=== PATIENT | female | born 1980 ===

== ENCOUNTER → 2018-12-25 | Day surgery (SDC) | payer OTHER ==
[~2018-12-25] MED LIST: Acetaminophen ADULT LIQ* 650 MG/20.3 ML UDC ONE; Acetaminophen IV 1GM/100ML * 0 ML ONE; Acetaminophen TAB* 325 MG PO PRN; BSS OPTH.SOL* BTL ONE; Buffered Lidocaine 1% SYRIN* 1 ML/SYRINGE INTRADERM ONE; Famotidine IV* 10 MG/ML 2 ML (20 mg) IV ONE; Famotidine IV* 10 MG/ML 2 ML (20 mg) ONE; Ibuprofen TAB* 600 MG ONE; Lactated Ringers 1000 ML Bag* 1,000 ML IV SCH; Lidocaine 1% w EPI 1:100,000* MDV 20 ML VIAL ONE; Lidocaine 2% PF * 5 ML VIAL ONE; Midazolam* 1 MG/ML 2 ML VIAL (2 MG) ONE; Midazolam* 1 MG/ML 5 ML VIAL (5 MG) ONE; Naloxone* 0.4 MG/ML 1 ML VIAL IV PRN; Ondansetron INJ* 2 MG/ML VIAL ONE; Propofol* 10 MG/ML 20 ML BTL ONE; ceFAZolin 2 GM PREMIX in ORs 2 GM/50 ML BAG ONE; fentaNYL* 50 MCG/ML 2 ML VIAL (100 MCG VIAL) ONE
[2018-12-25 13:55] VITALS: BP 125/80
== END | disposition home or self-care (01) ==
LOC: OR 08:48
PROVIDERS: ATTEND Plastic Surgery
DX: C44.319 Basal cell carcinoma of skin of other parts of face (principal); Z87.891 Personal history of nicotine dependence
CPT/HCPCS: 81025; 88305; 88331; 88332; A9270-GY; J0690; J2250; J2405; J2704; J3010